=== PATIENT | male | born 1995 | race Two or more races ===

== ENCOUNTER 2018-01-05 23:26 | Emergency (ER) | payer OTHER ==
[2018-01-05 23:34] VITALS: TEMP 98
--- NOTE | 2018-01-06 00:03 | ED PDOC ---
HPI:Nausea, Vomiting, Diarrhea Time Seen by Provider: 01/05/18 23:36 Chief Complaint (Nursing): GI Problem Chief Complaint (Provider): possible withdrawal History Per: Patient History/Exam Limitations: no limitations Onset/Duration Of Symptoms: Hrs Current Symptoms Are (Timing): Still Present Additional Complaint(s): 22 y/o male presents for evaluation of possible heroin withdrawal x 6 hours. Patient states he overslept and missed his appointment to refill his Methadone ( last dose taken 01/04). Patient states he now feels nauseous and has abdominal cramps. Denies fever, headache, dizziness, vomiting, chest pain, shortness of breath, palpitations, changes in bowel movements, urinary symptoms. Patient states he took his Lexapro dose and smoked marijuana today. Past Medical History Reviewed: Historical Data, Nursing Documentation, Vital Signs Vital Signs: Last Vital Signs Temp 98 F 01/05/18 23:31 Pulse 59 L 01/05/18 23:31 Resp 18 01/05/18 23:31 BP 117/85 01/05/18 23:31 Pulse Ox 100 01/05/18 23:31 - Medical History PMH: No Chronic Diseases - Surgical History Surgical History: No Surg Hx - Family History Family History: States: No Known Family Hx - Living Arrangements Living Arrangements: Alone - Social History Current smoker - smoking cessation education provided: No Alcohol: None Drugs: Prescription medications (Methadone) - Home Medications Home Medications: Ambulatory Orders Medication Instructions Recorded Ondansetron ODT [Zofran ODT] 4 mg PO Q8 PRN #10 odt 01/06/18 - Allergies Allergies/Adverse Reactions: Allergies Allergy/AdvReac Type Severity Reaction Status Date / Time No Known Allergies Allergy Verified 01/05/18 23:55 Review of Systems ROS Statement: Except As Marked, All Systems Reviewed And Found Negative Gastrointestinal: Positive for: Nausea Physical Exam - Reviewed Nursing Documentation Reviewed: Yes Vital Signs Reviewed: Yes - Physical Exam Appears: Positive for: Well, Non-toxic, No Acute Distress Head Exam: Positive for: ATRAUMATIC, NORMAL INSPECTION, NORMOCEPHALIC Skin: Positive for: Normal Color Eye Exam: Positive for: Normal appearance ENT: Positive for: Normal ENT Inspection Cardiovascular/Chest: Positive for: Regular Rate, Rhythm Respiratory: Positive for: Normal Breath Sounds Gastrointestinal/Abdominal: Positive for: Normal Exam Back: Positive for: Normal Inspection Extremity: Positive for: Normal ROM Neurologic/Psych: Positive for: Alert, Oriented (x3) - ECG O2 Sat by Pulse Oximetry: 100 - Progress ED Course And Treament: Zofran ODT 00:50 Patient tolerated PO. VItals remain stable Patient was advised to follow up at Methadone clinic today. Rx Zofran provided Return precautions given Disposition - Clinical Impression Clinical Impression: Nausea - Patient ED Disposition Is Patient to be Admitted: No Counseled Patient/Family Regarding: Diagnosis, Need For Followup - Disposition Disposition: Routine/Home Disposition Time: 00:57 Condition: IMPROVED Prescriptions: Ondansetron ODT [Zofran ODT] 4 mg PO Q8 PRN #10 odt PRN Reason: Nausea/Vomiting Instructions: Nausea and Vomiting, Adult
[2018-01-06 02:12] VITALS: BP 119/66; PULSE 80; RESP 20; O2SAT 99
== END 2018-01-06 01:42 | disposition left against medical advice (07) ==
LOC: H.ER 23:26
DX: R11.0 Nausea (principal); F12.90 Cannabis use, unspecified, uncomplicated

== ENCOUNTER 2018-01-08 13:50 | Emergency (ER) | payer OTHER ==
[2018-01-08 13:59] VITALS: PULSE 85; RESP 16; TEMP 99.5; O2SAT 99
--- NOTE | 2018-01-08 15:33 | ED PDOC ---
HPI: Psych/Substance Abuse Time Seen by Provider: 01/08/18 14:23 Chief Complaint (Nursing): Psychiatric Evaluation Chief Complaint (Provider): psychiatric evaluation History Per: Patient History/Exam Limitations: no limitations Current Symptoms Are (Timing): Still Present Additional Complaint(s): Jonatan Cruz is a 22 year old male, with unknown past medical history , who was brought to the emergency department via EMS for psychiatric evaluation. Patient is in the room, sitting in the chair. Patient has a flat affect and will not speak. History limited due to patient being a poor historian. PMD: None provided. Past Medical History Reviewed: Historical Data, Nursing Documentation, Vital Signs, Unable To Obtain Vital Signs: Last Vital Signs Temp 99.5 F 01/08/18 13:54 Pulse 85 01/08/18 13:54 Resp 16 01/08/18 13:54 BP Pulse Ox 99 01/08/18 13:54 - Family History Family History: States: Unknown Family Hx - Home Medications Home Medications: Ambulatory Orders Medication Instructions Recorded Ondansetron ODT [Zofran ODT] 4 mg PO Q8 PRN #10 odt 01/06/18 - Allergies Allergies/Adverse Reactions: Allergies Allergy/AdvReac Type Severity Reaction Status Date / Time No Known Allergies Allergy Verified 01/08/18 13:54 Review of Systems Review Of Systems: ROS cannot be obtained secondary to pt's inabilty to answer questions. Physical Exam - Reviewed Nursing Documentation Reviewed: Yes Vital Signs Reviewed: Yes - Laboratory Results Result Diagrams: 01/08/18 16:05 01/08/18 16:05 - ECG O2 Sat by Pulse Oximetry: 99 (RA) Pulse Ox Interpretation: Normal Medical Decision Making Medical Decision Making: Time: 14:23 Initial Impression: Psychiatric evaluation Initial Plan: --EKG --Alcohol serum --CMP --Drug screen, urine --Crisis evaluation as per order --CBC w/ differential --Chest one view [RAD] --1:1 Observation --Urinalysis --Reevaluation K resulted 2.8. Pt declining IV access at this time. Administered K.Dur PO. Repeat K and Magnesium ordered 16:10 CXR FINDINGS: Examination limited by patient obliquity. LUNGS: No focal consolidation. Please note that chest x-ray has limited sensitivity for the detection of pulmonary masses. PLEURA: No significant pleural effusion identified. No definite pneumothorax . CARDIOVASCULAR: The cardiomediastinal silhouette appears within normal limits of size. OSSEOUS STRUCTURES: No acute osseous abnormality identified. VISUALIZED UPPER ABDOMEN: Unremarkable. OTHER FINDINGS: None. IMPRESSION: No focal consolidation, significant pleural effusion, or definite pneumothorax identified. 18:[address] FINDINGS: HEMORRHAGE: No intracranial hemorrhage. BRAIN: No mass effect or edema. No atrophy or chronic microvascular ischemic changes. VENTRICLES: No hydrocephalus. CALVARIUM: Unremarkable. PARANASAL SINUSES: Unremarkable as visualized. No significant inflammatory changes. MASTOID AIR CELLS: Unremarkable as visualized. No inflammatory changes. OTHER FINDINGS: None. IMPRESSION: No acute intracranial pathology identified. Pt underwent crisis eval, see notes. Repeat 3.7, Mag 2.0 Scribe Attestation: Documented by Marc Clark, acting as a scribe for Shanita Bermudez PA-C Provider Scribe Attestation: All medical record entries made by the Scribe were at my direction and personally dictated by me. I have reviewed the chart and agree that the record accurately reflects my personal performance of the history, physical exam, medical decision making, and the department course for this patient. I have also personally directed, reviewed, and agree with the discharge instructions and disposition. Disposition - Clinical Impression Clinical Impression: Anxiety - Patient ED Disposition Is Patient to be Admitted: No Doctor Will See Patient In The: Office - Disposition Disposition: Routine/Home Disposition Time: 20:34 Condition: STABLE Instructions: Anxiety, Adult (DC) Forms: [employer] (British) - POA Present On Arrival: None
--- NOTE | 2018-01-08 16:11 | RAD ---
HISTORY: med screening COMPARISON: None available. TECHNIQUE: Chest, one view. FINDINGS: Examination limited by patient obliquity. LUNGS: No focal consolidation. Please note that chest x-ray has limited sensitivity for the detection of pulmonary masses. PLEURA: No significant pleural effusion identified. No definite pneumothorax . CARDIOVASCULAR: The cardiomediastinal silhouette appears within normal limits of size. OSSEOUS STRUCTURES: No acute osseous abnormality identified. VISUALIZED UPPER ABDOMEN: Unremarkable. OTHER FINDINGS: None. IMPRESSION: No focal consolidation, significant pleural effusion, or definite pneumothorax identified.
[2018-01-08 16:15] LABS: BASO % 0.5 % (0.0-2.0); LYMPH # 2.1 K/uL (1.0-4.3); LYMPH % 22.3 % (20.0-40.0); MEAN CORPUSCULAR HEMOGLOBIN 33.3 pg (27.0-31.0); MEAN CORPUSCULAR HGB CONC 34.3 g/dL (33.0-37.0); MEAN PLATELET VOLUME 9.5 fl (7.2-11.7); MONO # 0.7 K/uL (0.0-0.8); NEUT # 6.6 K/uL (1.8-7.0); NEUT % 70.2 % (50.0-75.0); RBC 4.79 Mil/uL (4.40-5.90); RED CELL DISTRIBUTION WIDTH 12.4 % (11.5-14.5); WHITE BLOOD COUNT 9.4 K/uL (4.8-10.8)
[2018-01-08 16:34] LABS: ALB/GLOB RATIO 1.4 (1.0-2.1); ALBUMIN 4.9 g/dL (3.5-5.0); ALT/SGPT 22 U/L (21-72); AST/SGOT 21 U/L (17-59); BLOOD UREA NITROGEN 10 mg/dl (9-20); GFR NON-AFRICAN AMERICAN > 60
[2018-01-08] MEDS ORDERED: Potassium Chloride 20 mEq ER Tab PO ONE ×2 (17:20→17:30)
[2018-01-08 18:00] LABS: SQUAMOUS EPITHIAL < 1 /hpf (0-5); URINE BACTERIA RARE (<OCC); URINE BILIRUBIN NEGATIVE (NEGATIVE); URINE BLOOD SMALL (NEGATIVE); URINE CLARITY CLOUDY (Clear); URINE COLOR AMBER (YELLOW); URINE GLUCOSE (UA) 50 mg/dL (Normal); URINE LEUKOCYTE ESTERASE NEG Leu/uL (Negative); URINE PROTEIN 100 mg/dL (NEGATIVE)
--- NOTE | 2018-01-08 18:02 | CT ---
Date of service: 01/08/2018 PROCEDURE: CT HEAD WITHOUT CONTRAST. HISTORY: AMS COMPARISON: None available. TECHNIQUE: Axial computed tomography images were obtained through the head/brain without intravenous contrast. Radiation dose: Total exam DLP = 829.07 mGy-cm. This CT exam was performed using one or more of the following dose reduction techniques: Automated exposure control, adjustment of the mA and/or kV according to patient size, and/or use of iterative reconstruction technique. FINDINGS: HEMORRHAGE: No intracranial hemorrhage. BRAIN: No mass effect or edema. No atrophy or chronic microvascular ischemic changes. VENTRICLES: No hydrocephalus. CALVARIUM: Unremarkable. PARANASAL SINUSES: Unremarkable as visualized. No significant inflammatory changes. MASTOID AIR CELLS: Unremarkable as visualized. No inflammatory changes. OTHER FINDINGS: None. IMPRESSION: No acute intracranial pathology identified.
[2018-01-08 18:18] LABS: BARBITURATES, UR NEGATIVE (NEGATIVE); BENZODIAZEPINES, UR NEGATIVE (NEGATIVE); OPIATES, UR NEGATIVE (NEGATIVE); PHENCYCLIDINE, UR NEGATIVE (NEGATIVE)
--- NOTE | 2018-01-09 08:25 | CARD ---
APPROVED REPORT Date of service: 01/08/2018 <Conclusion> Normal sinus rhythm with sinus arrhythmia Normal ECG
== END 2018-01-08 20:53 | disposition home or self-care (01) ==
LOC: H.ER 13:50
DX: F41.9 Anxiety disorder, unspecified (principal); Z00.8 Encounter for other general examination
CPT/HCPCS: 70450; 71045; 80053; 80320; 80324; 80345; 80346; 80349; 80353; 80358; 80361; 81003; 83735; 83992; 84132; 85025; 93005; 96372; 99282; J2060

== ENCOUNTER 2018-02-11 06:43 | Emergency (ER) | payer MEDICAID, OTHER ==
[2018-02-11 06:52] VITALS: BMI 20.9
--- NOTE | 2018-02-11 08:11 | ED PDOC ---
HPI: General Adult Time Seen by Provider: 02/11/18 07:07 Chief Complaint (Nursing): Psychiatric Evaluation Chief Complaint (Provider): Psychiatric Evaluation History Per: Patient, Other (PD) History/Exam Limitations: no limitations Additional Complaint(s): 22 years old male brought to ER by [facility] for evaluation of right eye injury. PMD: non provided Past Medical History Reviewed: Historical Data, Nursing Documentation, Vital Signs Vital Signs: Last Vital Signs Temp 98.2 F 02/11/18 06:52 Pulse 101 H 02/11/18 06:52 Resp 18 02/11/18 06:52 BP 128/84 02/11/18 06:52 Pulse Ox 98 02/11/18 06:52 - Medical History PMH: Anxiety, Depression Denies: Diabetes, Hepatitis, HIV, HTN, Chronic Kidney Disease, Seizures, Sexually Transmitted Disease - Surgical History Surgical History: No Surg Hx - Family History Family History: States: Unknown Family Hx - Social History Current smoker - smoking cessation education provided: Yes Alcohol: None (Unknown) Drugs: Cocaine - Allergies Allergies/Adverse Reactions: Allergies Allergy/AdvReac Type Severity Reaction Status Date / Time No Known Allergies Allergy Verified 02/11/18 06:51 Review of Systems ROS Statement: Except As Marked, All Systems Reviewed And Found Negative Eyes: Positive for: Other (Right eye cut) Physical Exam - Reviewed Nursing Documentation Reviewed: Yes Vital Signs Reviewed: Yes - Physical Exam Appears: Positive for: No Acute Distress Head Exam: Positive for: ATRAUMATIC, NORMOCEPHALIC Eye Exam: Positive for: Other (1 cm cut to right eye) Extremity: Positive for: Normal ROM. Negative for: Pedal Edema, Swelling Neurologic/Psych: Positive for: Alert, Oriented (x3) - ECG O2 Sat by Pulse Oximetry: 98 (RA) Pulse Ox Interpretation: Normal Medical Decision Making Medical Decision Makin Patient advised to glue or suture placement the cut. He declines procedure saying "let it bleed, I am a warrior" Scribe Attestation: Documented by Brittney Hooks, acting as a scribe for Valerie Carrera MD. Provider Scribe Attestation: All medical record entries made by the Scribe were at my direction and personally dictated by me. I have reviewed the chart and agree that the record accurately reflects my personal performance of the history, physical exam, medical decision making, and the department course for this patient. I have also personally directed, reviewed, and agree with the discharge instructions and disposition. Disposition - Clinical Impression Clinical Impression: Adjustment disorder, Facial laceration - Disposition Referrals: [facility] [Outside] Condition: STABLE Additional Instructions: PATIENT MEDICALLY AND PSYCHIATRICALLY CLEARED FOR INCARCERATION. Instructions: Adjustment Disorder, Wound Care Forms: [employer] (Mongolian)
[2018-02-11 09:42] VITALS: BP 131/76; PULSE 87; RESP 17; TEMP 98.1; O2SAT 100
== END 2018-02-11 09:40 ==
LOC: H.ER 06:43
DX: S01.81XA Laceration without foreign body of other part of head, initial encounter (principal); S05.91XA Unspecified injury of right eye and orbit, initial encounter; Y35.813A Legal intervention involving manhandling, suspect injured, initial encounter; Y92.89 Other specified places as the place of occurrence of the external cause; F17.200 Nicotine dependence, unspecified, uncomplicated; F32.9 Major depressive disorder, single episode, unspecified; F43.22 Adjustment disorder with anxiety